=== PATIENT | male | born 1950 | race African-American/Black ===

== ENCOUNTER → 2017-04-19 | Outpatient (CLI) | payer OTHER ==
--- NOTE | ~2017-04-19 | CT55 ---
[facility] A Service of [facility] RADIOLOGY TEXT RESULTS PAT[facility]: [facility] #: [id number] AGE: [address]: LIZETT VELÁSQUEZ SEX: M ORDER DR: [id number] [place] [id number] [facility]. [place], [place] [address] [id number] O MR#: [id number] Acc #: [id number] NAME: ABELINO MARKS : 1950 SEX: M STUDY DATE/TIME: 04/19/2017 15:37 UNIT: [facility] ROOM: STUDY DESCRIPTION: CT Chest W Con Attending Physician: Lizett Velásquez Aprn Referring Physician: Lizett Velásquez Aprn Ordering Physician: Lizett Velásquez Aprn Primary Care Physician: Jeff Blackmon M.D. MEDICAL IMAGING REPORT This report is preliminary unless electronic signature is present EXAM CT scan of the chest with contrast. INDICATION Cough for osg-ia-ynaer months. Retrocardiac opacity left lower lobe seen on recent chest x-ray. TECHNIQUE CT scan of the chest was performed following the administration of IV contrast. Coronal and sagittal reformatted images were obtained. This CT exam was performed with one or more of the following radiation dose reduction techniques: automatic exposure control, adjustment of mA and/or kV according to patient size, and iterative reconstruction. COMPARISON There are no comparisons CTs available. The study is correlated with chest x-ray from 04/12/2017. FINDINGS There is no suspicious lymphadenopathy. There are calcified mediastinal lymph nodes. No pleural effusion. Calcified granuloma in the left lower lobe. No suspicious pulmonary nodule or airspace consolidation. Small lipoma is noted within the pectoralis major on the right. 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 On the left, the nodules are low in attenuation and are most suggestive of adenomas. Degenerative changes thoracic spine. IMPRESSION There is a calcified granuloma in the left lower lobe. Otherwise, the lung garcia are clear. There is no pleural effusion or lymphadenopathy. [facility] A Service of [facility] RADIOLOGY TEXT RESULTS PATIENT: ABELINO MARKS [facility] UN[facility] #: [id number] AGE: [address]: LIZETT VELÁSQUEZ SEX: M ORDER DR: Dictated by... Chapito Taylor M.D. THIS IS AN ELECTRONICALLY VERIFIED REPORT Chapito Taylor M.D. at 04/21/2017 6:58 AM MARCUS/domenica TD: 04/20/2017 09:21 JOB #: [id number] MEDICAL IMAGING REPORT Page 1 of 1 COPY
[2017-04-19 16:31] LABS: POC - CREATININE 0.95 mg/dL (0.64-1.27); POC - GFR >60.0 mL/min (>60)
== END | disposition home or self-care (01) ==
LOC: CCAT 14:13
PROVIDERS: Nurse Practitioner
DX: R91.8 Other nonspecific abnormal finding of lung field (principal); J84.10 Pulmonary fibrosis, unspecified
CPT/HCPCS: 71260; 82565; Q9967